=== PATIENT | female | born 1950 ===

== ENCOUNTER 2023-11-08 06:18 | Day surgery (SDC) | payer MEDICARE, OTHER, SELFPAY ==
[2023-11-08] VITALS (13 sets, daily range): BP systolic 142–193; BP diastolic 69–139; BMI 26.0
[2023-11-08 08:21] LABS: Glucose - Point of Care 161 mg/dl (70-99)
[2023-11-08 10:03] LABS: Glucose - Point of Care 145 mg/dl (70-99)
[2023-11-08] MEDS: DILAUDID 0.5 MG IV (10:28)
[2023-11-08] MEDS: DEMEROL 12.5 MG IV (10:40)
[2023-11-08] MEDS: TORADOL 15 MG IV (11:07)
== END 2023-11-08 12:06 | disposition home or self-care (01) ==
LOC: SDS 06:18
PROVIDERS: ATTENDING PHYSICIAN Specialist
DX: N20.0 Calculus of kidney (principal)
CPT/HCPCS: 52356; 74018; 76000; 82365; 82962; C1894; C2617

== ENCOUNTER 2023-11-19 09:56 | Inpatient (IN) | payer MEDICARE, OTHER, SELFPAY ==
[2023-11-17 12:56] VITALS: BP 140/91
[2023-11-17 13:14] VITALS: BMI 28.0
[2023-11-17] MEDS: NSS 2000 ML IV (13:28)
[2023-11-17] MEDS: TYLENOL 1000 MG PO (13:37)
[2023-11-17] MEDS: TORADOL 15 MG IV ×2 (13:37→21:46)
[2023-11-17 13:43] LABS: % Basophils 0.5 % (0-2); % Eosinophils 0.6 % (0-6); % Immature Granulocytes 0.6 % (0-0.5); % Lymphocytes 9.5 % (20.5-51.1); % Monocytes 4.5 % (1.7-9.3); % Neutrophils 84.3 % (42.2-75.2); Absolute Basophils 0.1 10^3/uL (0-0.2); Absolute Eosinophils 0.1 10^3/uL (0-0.7); Absolute Immature Granulocytes 0.1 10^3/uL (0-0.05); Absolute Monocytes 0.5 10^3/uL (0.1-0.6); Absolute Neutrophils 9.1 10^3/uL (1.4-6.5); Hematocrit 38.1 % (37.0-47.0); Hemoglobin 13.8 g/dL (12.0-16.0); Mean Corp Hgb Conc. 36.2 g/dL (33.0-37.0); Mean Corpuscular Hgb 30.4 pg (27.0-31.0); Mean Corpuscular Volume 83.9 fL (81.0-99.0); Mean Platelet Volume 9.5 fL (7.4-10.4); Nucleated Red Blood Cells % 0 %; Platelet Count 257 10^3/uL (130-400); Red Blood Cell Count 4.54 10^6/uL (4.20-5.40); White Blood Cell Count 10.8 10^3/uL (4.8-10.8)
[2023-11-17 13:44] LABS: Urine Albumin Negative (Neg - Trace); Urine Bilirubin Negative (Negative); Urine Character Clear (Clear); Urine Color Yellow; Urine Glucose Negative (Negative); Urine Ketone Negative (Negative); Urine Leukocyte 2+ (Negative); Urine Nitrite Positive (Negative); Urine Occult Blood Negative (Negative); Urine Urobilinogen Negative (Neg - 1+)
[2023-11-17 13:55] LABS: Lactic Acid 2.1 mmol/L (0.7-2.0)
[2023-11-17 13:56] LABS: ALT (SGPT) 16 U/L (0-35); AST (SGOT) 23 U/L (14-36); Albumin 4.6 g/dl (3.5-5.0); Alkaline Phosphatase 71 U/L (38-126); Blood Urea Nitrogen 15 mg/dl (7-17); Calcium 9.7 mg/dl (8.4-10.2); Carbon Dioxide 27 mmol/L (22-30); Chloride 99 mmol/L (98-107); Estimated Creatinine Clearance 68 ml/min; Glucose 129 mg/dl (70-99); Potassium 3.4 mmol/L (3.5-5.1); Sodium 138 mmol/L (135-145); Total Bilirubin 0.7 mg/dl (0.2-1.3); Total Protein 7.3 g/dl (6.3-8.2); eGFR > 60.00
--- NOTE | 2023-11-17 13:59 | ED.GENMED ---
History of Present Illness
General
Chief Complaint: Flank Pain
Source: patient
Time Seen by Provider: 11/17/23 13:12
History of Present Illness
History of Present Illness:
73 year old female with past medical history of hypertension, hyperlipidemia, diabetes, status post left ureteral stent placement/lithotripsy/stone extraction on 11/08/2023 on the right presenting to the ER due to increasing pain over the last few
days accompanied with fevers, chills, and rigors that started today. Patient did not take anything for symptoms prior to arrival. She states that 1 to 2 days following the procedure she did have some urinary frequency and dysuria but was told that
this was normal. She still notes the continued frequency/urgency but dysuria has completely abated. She denies any nausea or vomiting. No other concerns at this time.
Past History
Past History
ED Past Medical History: Cancer (Breast), HTN, Hypercholesterolemia, NIDDM and Other (Kidney stones)
ED Past Surgical History: Orthopedic and Other
Social History
Tobacco: Non-smoker
Alcohol: Occasional
Drug: None
Personal:
Living: with family
Review of Systems
Review of Systems
All Other Systems: ROS reviewed and negative except as documented in HPI and ROS
Phy Exam
Physical Exam
Physical Exam:
GENERAL: Alert , in no apparent distress
EYE: conjunctiva clear
NECK: Supple, no significant adenopathy.
ENT: o/p clr, mmm.
CARDIAC: Regular rate and rhythm
LUNGS: Clear breath sounds bilaterally, no acute respiratory distress, no wheezes/rales/rhonchi
Abdomen: Soft, mild right CVA tenderness, nondistended
NEUROLOGICAL: Alert and oriented
SKIN: Warm and dry, skin intact.
MUSCULOSKELETAL: well perfused.
PSYCH: Normal and appropriate interaction.
Scores
Heart Failure Risk
Heart Failure Risk Score: Not Applicable
Heart Score for Chest Pain Patients
STEMI patient?: Not applicable
Withdrawal Assessment of Alcohol
Withdrawal Assessment Completed?: Not applicable
Course
Orders/Labs/Results
Orders:
Orders
11/17/23 13:13
Acetaminophen [Tylenol] 1,000 mg PO NOW STA
11/17/23 13:15
0.9% Sodium Chloride 1000 ml [Nss] 2,000 ml IV NOW STA
11/17/23 13:25
Complete Blood Count/With Diff Urgent
Comprehensive Metabolic Panel Urgent
Lactic Acid Q4H
Comment: CANCEL 2nd LACTIC ACID IF 1st LACTIC ACID IS LESS THAN 2
Urinalysis Reflex To Culture Urgent
Date Specimen was Collected: 11/17/23
Time Specimen was Collected: 13:15
Urine Microscopic Reflex Cult Urgent
Blood Culture Q30M
HAMIDA Source: Blood/Venous
Specimen Description:
Blood Culture Q30M
HAMIDA Source: Blood/Venous
Specimen Description:
Urine Culture Urgent
HAMIDA Source: U
Specimen Description:
Date Specimen was Collected: 11/17/23
Time Specimen was Collected: 13:15
11/17/23 13:30
Ketorolac [Toradol] 15 mg IV NOW STA
11/17/23 13:56
CefTRIAXone [Rocephin] 1,000 mg IV NOW STA
11/17/23 14:41
Admit/Transfer Patient As Directed
Co-Sign Provider:
Level of Care: Observation services
Assign to:: Medical/Surgical
Physician / Group: Jelly
Diagnosis: UTI
11/17/23 14:42
Code Status As Directed
Resuscitation Status: Full Code
11/17/23 14:45
Chest X-ray Portable [CR Chest Portable - 1 View] Routine
Comment:
Reason For Exam: fever
Reason Study Needs to be Portable: Other
11/17/23 17:15
Lactic Acid Q4H
Comment: CANCEL 2nd LACTIC ACID IF 1st LACTIC ACID IS LESS THAN 2
Abnormal Lab Results
11/17/23
13:25
Abs Immat Gran (auto) 0.1 H 10^3/uL
(0-0.05)
Absolute Neuts (auto) 9.1 H 10^3/uL
(1.4-6.5)
Absolute Lymphs (auto) 1.0 L 10^3/uL
(1.2-3.4)
Immature Gran % 0.6 H %
(0-0.5)
Neutrophils % 84.3 H %
(42.2-75.2)
Lymphocytes % 9.5 L %
(20.5-51.1)
Potassium 3.4 L mmol/L
(3.5-5.1)
Glucose 129 H mg/dl
(70-99)
Lactic Acid 2.1 H mmol/L
(0.7-2.0)
Urine Nitrite (Reflex) Positive A
(Negative)
Leukocyte Esterase Rfl 2+ A
(Negative)
Urine Bacteria (Reflex) Moderate A
(Negative)
11/17/23 13:25
11/17/23 13:25
Vital Signs
Initial and Last Documented VS:
Initial Vital Signs
Temp Pulse Resp BP Pulse Ox
101.2 F H 112 18 140/91 97
11/17/23 12:56 11/17/23 12:56 11/17/23 12:56 11/17/23 12:56 11/17/23 12:56
Last Documented Vital Signs
Temp Pulse Resp BP Pulse Ox
99.1 F 98 16 142/70 96
11/17/23 15:04 11/17/23 14:17 11/17/23 14:17 11/17/23 14:17 11/17/23 14:17
MDM/Problems Addressed
Differential Diagnosis Includes:
Pyelonephritis, cystitis, urosepsis, bacteremia
MDM/Problems Addressed:
73-year-old female presenting emergency department for evaluation of right-sided flank pain with new fever, chills in the setting of recent right ureteral stent placement and stone extraction on November 07. She was found to have a 101.2 fever here.
Tylenol was ordered for her pyrexia. Labs including blood cultures and lactic acid ordered as I do have concern for urosepsis. Will order fluids. Awaiting antibiotics until patient's urine resulted.
*Pulse Oximetry
Patient hypoxic: no
*Critical Care Note
Total Time (30-74mins, 75-104mins- exclusive of procedures): Not Applicable
Data Reviewed
Review of Other/Old Records Reveals: Records
Patient Management
Discussion with other providers: Hospitalist and [employer] Machine Operator
Escalation/DeEscalation of care consider admission/obs:
Patient has no elevated white blood cell count however does have a lactic acid of 2.1. Renal function is normal. Urine does show nitrate positive urine as well as 2+ leukocyte esterase. 1 g of Rocephin IV ordered. Both the hospitalist team and
urology were notified. Hospitalist team accepts for continued evaluation and treatment with urology in consultation.
ED Attending Note
-
Portions of this chart may have been created with voice recognition software.� Occasional wrong word or��sound alike� substitutions may have occurred due to the inherent limitations of voice recognition software.
Discharge Plan
Departure
Patient Disposition: Admit
Date of Disposition: 11/17/23
Time of Disposition: 13:59
Presentation/result/management discussed w/ accepting MD/DO: Hospitalist
Discharge Problem:
Acute pyelonephritis
Interventions
Interventions:
*Risk Screen - Suicide Last Done: 11/17/23 12:57
*General Assessment Last Done: 11/17/23 12:57
*Neglect/Abuse Screening Last Done: 11/17/23 12:57
*ED COVID-19 Vaccine History Last Done: 11/17/23 13:14
SR-Kynejl-Bjcnhrjiqz Assessment Last Done: 11/17/23 13:14
ED-Female Genitourinary Assessment Last Done: 11/17/23 13:14
[2023-11-17] MEDS: ROCEPHIN 1000 MG IV (14:12)
[2023-11-17 14:17] VITALS: BP 142/70
[2023-11-17 14:44] LABS: Urine Bacteria Moderate (Negative); Urine Red Blood Cell None Seen /HPF (0-2)
--- NOTE | 2023-11-17 15:11 | HPS.HSE ---
Family Physician
-
Family Physician: El Garcia MD
Chief Complaint
-
Fever and chills
History of Present Illness
Pleasant 73-year-old female who had a lithotripsy and stent placed in the left ureter on November 07 of this hospital, just over 2 she was doing well except the last couple of days she was feeling tired and lousy and lethargic specially this morning she
felt cold and chilly and having back pain mostly left flank, denies any chest pain or nausea or vomiting, denies dysuria or hematuria no abdominal pain, no cough or congestion, no sick contacts or recent travel.
This morning she felt very cold and chilly when she checked her temperature was 101 at home in the ER was 102.
Is little better with some fluid and Toradol in the ER also got a dose of Rocephin where the workup showed UTI.
Medical History
Past Medical History
Past Medical History: Reports Other
Additional Past Medical History:
Past medical history reviewed:
Diabetes mellitus
Hypertension
Dyslipidemia
Left breast cancer
History of C. difficile
Kidney stone
Chronic back pain
Surgical history:
Left breast surgery for cancer
Back surgery
Cystoscopy and lithotripsy and stent placement
Social history: Lives at home with her , denies smoking alcohol use. She is independent.
Family history: Reviewed and noncontributory
Past Surgical History: Reports Other
Social History
Alcohol: Other
Family History
Family History: Other
Allergies / Home Medications
Allergies reflects when Allergies were last updated in [facility].
Home Medications with original date entered in [facility]
Allergy/Medication List:
Allergies
Allergy/AdvReac Type Severity Reaction Status Date / Time
codeine Allergy Tongue Verified 11/08/23 07:49
Swelling
Home Medications
Lactobac no.2-Bifidobac no.1-S. thermo 112.5 billion cell capsule (Visbiome) 1 cap PO DAILY 04/10/23
amlodipine 10 mg tablet 10 mg PO HS 04/10/23
cholecalciferol (vitamin D3) 50 mcg (2,000 unit) tablet (Vitamin D3) 50 mcg PO DAILY 04/10/23
glimepiride 4 mg tablet 4 mg PO BID 04/10/23
losartan 100 mg tablet 100 mg PO DAILY 04/10/23
lovastatin 20 mg tablet 20 mg PO HS 04/10/23
metformin 500 mg tablet,extended release 24 hr 500 mg PO BID 04/10/23
chlorthalidone 25 mg tablet 12.5 mg PO DAILY 11/05/23
ascorbic acid (vitamin C) 500 mg tablet (Vitamin C) 500 mg PO DAILY 11/17/23
berberine chloride 500 mg capsule 500 mg PO DAILY 11/17/23
Review of Systems
-
A 12 point ROS was completed and negative except as noted: Yes
Physical Exam
Vital Signs
Vital Signs
Temp Pulse Resp BP Pulse Ox
99.1 F 98 16 142/70 96
11/17/23 15:04 11/17/23 14:17 11/17/23 14:17 11/17/23 14:17 11/17/23 14:17
Physical exam:
General: Awake, alert and oriented x3, not in distress and holds appropriate conversation.
HEENT: No active discharge, ecchymosis or bruising, moist lips, tongue and mucous membrane.
Eyes: No discharge or red conjunctiva, no nystagmus, pupils are reactive and equal
Neck:Supple, no JVD no bruit no goiter.
Respiratory: Normal AP contour and diameter, normal chest wall movement, normal respiratory effort, no respiratory distress,
Lungs: Good air entry bilaterally, no wheezing or rhonchi, no rales or crackles
Heart: S1, S2 regular, normal rate, no added sound.
Gastrointestinal: Positive bowel sounds, soft, nontender, no guarding or rigidity or organomegaly
Musculoskeletal: , no chest wall abnormality or tenderness. All joints and extremities have good range of motion, no muscle tenderness or any joint swelling or tenderness.
Extremities: No pitting edema, good peripheral pulses, good range of motion
Skin: Warm and dry, no ulceration, normal color.
Neurological: Awake, alert and oriented x3,,speech clear and comprehensive, good muscle tone, normal sensory and motor function
Psychiatric: Normal mood, normal thought and judgment, normal affect,
Physical Exam
Hematologic/Lymphatic: Other
Laboratory Results
-
11/17/23 13:25
11/17/23 13:25
Laboratory Results
Lactic Acid 2.1 mmol/L (0.7-2.0) H 11/17/23 13:25
Total Bilirubin 0.7 mg/dl (0.2-1.3) 11/17/23 13:25
AST 23 U/L (14-36) 11/17/23 13:25
ALT 16 U/L (0-35) 11/17/23 13:25
Alkaline Phosphatase 71 U/L (38-126) 11/17/23 13:25
Data Reviewed
-
Lab Data: Labs Reviewed by me and Discussed with Patient
Old Records: Reviewed
Impression/Plan
-
IMPRESSION:
73-year-old female presented to the hospital for fever and left flank pain recently lithotripsy and stent placement, workup chronic concerning for UTI.
Urine tract infection likely triggered by-left ureteral stent and recent cystoscopy
Fever
Left flank pain
Diabetes mellitus
Hypertension
Dyslipidemia.
PLAN:
IV fluid
Tylenol and Toradol as needed
IV Rocephin could be de-escalated pending urine culture and sensitivity
Get a blood culture if not collected
Get a chest x-ray
Hold metformin continue glimepiride
Monitor vital sign blood sugar
If not improved then will consider getting urology consult
All discussed with the patient in detail expressed understanding
CODE STATUS full code
DVT prophylaxis Lovenox
[2023-11-17 17:04] VITALS: BP 156/75; BMI 26.5
[2023-11-17 17:05] LABS: Glucose - Point of Care 145 mg/dl (70-99)
[2023-11-17] MEDS: NOVOLOG FLEXPEN-MODERATE RESISTANCE SC (17:11)
[2023-11-17] MEDS: NSS 1000 IV (17:16)
[2023-11-17] MEDS: LOVENOX 40 MG SC (17:20)
[2023-11-17 17:45] LABS: Lactic Acid 1.4 mmol/L (0.7-2.0)
[2023-11-17 21:32] LABS: Glucose - Point of Care 192 mg/dl (70-99)
[2023-11-17] MEDS: NORVASC 10 MG PO (21:35)
[2023-11-17] MEDS: LIPITOR 10 MG PO (21:35)
[2023-11-17] MEDS: AMARYL 4 MG PO (21:35)
[2023-11-17] MEDS: TYLENOL 650 MG PO (21:45)
[2023-11-17] MEDS: SENOKOT-S 1 TABLET PO (21:54)
[2023-11-17 23:58] VITALS: BP 134/78
[2023-11-18] MEDS: TORADOL 15 MG IV (03:34)
[2023-11-18] MEDS: TYLENOL 650 MG PO (06:09)
[2023-11-18 07:24] LABS: Glucose - Point of Care 198 mg/dl (70-99)
[2023-11-18 07:33] LABS: % Basophils 0.4 % (0-2); % Eosinophils 0.9 % (0-6); % Immature Granulocytes 0.4 % (0-0.5); % Lymphocytes 18.7 % (20.5-51.1); % Neutrophils 73.6 % (42.2-75.2); Absolute Eosinophils 0.1 10^3/uL (0-0.7); Absolute Lymphocytes 1.3 10^3/uL (1.2-3.4); Absolute Monocytes 0.4 10^3/uL (0.1-0.6); Hematocrit 32.5 % (37.0-47.0); Hemoglobin 11.8 g/dL (12.0-16.0); Mean Corp Hgb Conc. 36.3 g/dL (33.0-37.0); Mean Corpuscular Hgb 30.1 pg (27.0-31.0); Mean Corpuscular Volume 82.9 fL (81.0-99.0); Mean Platelet Volume 9.7 fL (7.4-10.4); Nucleated Red Blood Cells % 0 %; Platelet Count 224 10^3/uL (130-400); Red Blood Cell Count 3.92 10^6/uL (4.20-5.40); Red Cell Dist. Width 11.9 % (11.5-14.5); White Blood Cell Count 6.8 10^3/uL (4.8-10.8)
[2023-11-18] MEDS: NSS 1000 IV (07:44)
[2023-11-18] MEDS: AMARYL 4 MG PO ×2 (07:44→21:07)
[2023-11-18] MEDS: COZAAR 100 MG PO (07:45)
[2023-11-18] MEDS: VISBIOME 1 CAP PO (07:45)
[2023-11-18] MEDS: NOVOLOG FLEXPEN-MODERATE RESISTANCE 1 UNITS SC ×2 (07:47→17:45)
--- NOTE | 2023-11-18 07:51 | W.PN.HOSP.TC ---
Today's Communication/Plan
-
IV antibiotics. Urology eval.
Assessment / Plan
Assessment / Plan
Physical exam:
General: Acutely ill
HEENT: Normocephalic, Atraumatic and Moist Mucous Membranes
Respiratory: Clear to Auscultation; Negative Wheezes, Rales or Rhonchi
Cardiac: Regular Rhythm and S1/S2
GI: Soft, Nontender and Nondistended
Musculoskeletal: No Clubbing, No Cyanosis and No Edema
Neuro: Awake, Alert and Oriented
Psych: Calm
A/P:
UTI/pyelonephritis:
Continue IV antibiotics
Blood cultures no growth so far but continue to monitor
Urine culture, E. coli pending sensitivities
Status post left ureteroscopy, laser lithotripsy, and stent insertion on 11/07 by urology.
Urology consult-discussed with urology today (plan to remove ureteral stent either inpatient or outpatient)
Stop IV fluids
Hypertension:
On amlodipine 10 mg daily
On losartan 100 mg p.o. daily
Holding chlorthalidone 12.5 mg
Hyperlipidemia:
On atorvastatin 10 mg p.o. nightly
Diabetes mellitus type 2:
Insulin sliding scale
On Amaryl 4 mg twice a day
Holding metformin
DVT prophylaxis:
SCDs
CODE STATUS:
Full code
Anticipated Discharge: 24 - 48 hours
Subjective/Interval History
-
Date of Service: November 18, 2023
Patient feels better today. No nausea or vomiting. Afebrile
Objective Data
-
Labs:
Laboratory Results
11/18/23
06:46
WBC Pending
Hgb Pending
Hct Pending
Plt Count Pending
Sodium Pending
Potassium Pending
Chloride Pending
Carbon Dioxide Pending
BUN Pending
Creatinine Pending
Glucose Pending
Calcium Pending
Vital Signs:
Vital Signs
Temp Pulse Resp BP Pulse Ox
98.1 F 89 16 144/70 97
11/17/23 23:58 11/17/23 23:58 11/17/23 23:58 11/18/23 07:45 11/17/23 23:58
I&O
11/17/23 11/18/23 11/19/23
06:59 06:59 06:59
Intake Total 480 / 480
Balance 480 / 480
[2023-11-18 08:11] VITALS: BP 144/70
[2023-11-18 08:19] LABS: Glycohemoglobin (HgbA1c) 6.5 % (4.0-5.6)
[2023-11-18 08:32] LABS: Blood Urea Nitrogen 10 mg/dl (7-17); Calcium 8.9 mg/dl (8.4-10.2); Carbon Dioxide 23 mmol/L (22-30); Chloride 106 mmol/L (98-107); Estimated Creatinine Clearance 71 ml/min; Glucose 159 mg/dl (70-99); Magnesium 1.5 mg/dl (1.6-2.3); Potassium 3.8 mmol/L (3.5-5.1); Sodium 137 mmol/L (135-145); eGFR > 60.00
[2023-11-18] MEDS: SENOKOT-S 1 TABLET PO (10:18)
--- NOTE | 2023-11-18 10:46 | CM ---
Patient seen bedside with spouse, initial assessment completed. Patient resides with spouse in a two story home, one step to enter. Patients reports she has grown children and grandchildren who live out of state. Patient denies DME, VN, or SNF,
reports she is still working. Patient confirms PCP El Garcia, pharmacy [facility] in [place], confirms prescription coverage. Patient denies food insecurities, housing/utility insecurities, transportation insecurities. [employer] form reviewed,
refused to sign, provided patient with copy. Documented and placed in chart. Patient denies any needs from CM upon discharge. CM will continue to follow for all discharge planning needs.
Plan; home no needs likely.
[2023-11-18 11:44] LABS: Glucose - Point of Care 154 mg/dl (70-99)
[2023-11-18] MEDS: NOVOLOG FLEXPEN-MODERATE RESISTANCE SC (12:11)
--- NOTE | 2023-11-18 12:44 | W.PN.URO.CBU ---
Today's Communication / Plan
-
HOME WITH STENTS ONCE ORGANISM IODENTIFIED AND PT STABLE
Assessment / Plan
-
COMPLEX UTI WILL LEAVE STENTS AND DISCHARGE ONCE TARGETED PO ABS ESTABLIHED
Diagnosis
-
Date of Service: November 18, 2023
-
Patient Diagnosis:COMPLEX YTI IN PT WITH JJ STENT S/P LG URIC ACID STONEN LASER
Post Op Day:
Subjective
-
FEELING BETTER
Objective
-
Vital Signs
Temp Pulse Resp BP Pulse Ox
98 F 75 16 144/70 95
11/18/23 08:11 11/18/23 08:11 11/18/23 08:11 11/18/23 08:11 11/18/23 08:11
Intake and Output
11/17/23 11/18/23 11/19/23
06:59 06:59 06:59
Intake Total 480 / 480
Balance 480 / 480
Intake:
Oral fluids 480 / 480
Other:
Number of approximated MODERATE 3
amounts of urine
Laboratory Results
11/18/23 06:46
11/18/23 06:46
Review of Systems
-
Constitutional: Fever and Fatigue
Physical Exam
-
General - well developed, well nourished, no acute distress
Chest - clear bilaterally
Abdomen - soft, non-tender, positive bowel sounds, no CVAT, no incisional pain or distention
Genitalia - normal
Rectal - normal
Skin - warm & dry with no rash
Neuro - AOx3, no motor deficits
Extremities - no clubbing, no cyanosis, no edema
Incision - clean, dry
Dressing - clean, dry, intact
Care Review
Data Reviewed
Discussed with: Hospitalist and Nursing
CT Scan: Image Pers Reviewed
[2023-11-18] MEDS: STERILE WATER FOR INJECTION 10 ML IV (13:34)
[2023-11-18] MEDS: ROCEPHIN 1000 MG IV (13:34)
[2023-11-18] MEDS: MIRALAX 17 GRAMS PO (13:40)
[2023-11-18 15:58] VITALS: BP 138/75
[2023-11-18 16:32] LABS: Glucose - Point of Care 165 mg/dl (70-99)
[2023-11-18] MEDS: LOVENOX 40 MG SC (17:45)
[2023-11-18] MEDS: NORVASC 10 MG PO (21:07)
[2023-11-18] MEDS: LIPITOR 10 MG PO (21:07)
[2023-11-18 21:36] LABS: Glucose - Point of Care 224 mg/dl (70-99)
[2023-11-18 23:47] VITALS: BP 156/84
[2023-11-19 07:00] VITALS: BP 146/72
[2023-11-19 07:11] LABS: % Basophils 0.3 % (0-2); % Eosinophils 1.1 % (0-6); % Immature Granulocytes 0.4 % (0-0.5); % Lymphocytes 22.5 % (20.5-51.1); % Monocytes 6.5 % (1.7-9.3); % Neutrophils 69.2 % (42.2-75.2); Absolute Eosinophils 0.1 10^3/uL (0-0.7); Absolute Lymphocytes 1.6 10^3/uL (1.2-3.4); Absolute Monocytes 0.5 10^3/uL (0.1-0.6); Hematocrit 36.4 % (37.0-47.0); Hemoglobin 12.5 g/dL (12.0-16.0); Mean Corp Hgb Conc. 34.3 g/dL (33.0-37.0); Mean Corpuscular Hgb 29.8 pg (27.0-31.0); Mean Corpuscular Volume 86.7 fL (81.0-99.0); Mean Platelet Volume 9.3 fL (7.4-10.4); Nucleated Red Blood Cells % 0 %; Platelet Count 229 10^3/uL (130-400); Red Cell Dist. Width 11.9 % (11.5-14.5); White Blood Cell Count 7.2 10^3/uL (4.8-10.8)
[2023-11-19 07:18] LABS: Glucose - Point of Care 175 mg/dl (70-99)
[2023-11-19] MEDS: GLUCOPHAGE XR EXTENDED RELEASE 500 MG PO (08:40)
[2023-11-19] MEDS: VITAMIN D3 (cholecalciferol) 50 MCG PO (08:40)
[2023-11-19] MEDS: COZAAR 100 MG PO (08:40)
[2023-11-19] MEDS: Hygroton 12.5 MG PO (08:40)
[2023-11-19] MEDS: VISBIOME 1 CAP PO (08:40)
[2023-11-19] MEDS: AMARYL 4 MG PO (08:40)
[2023-11-19] MEDS: NOVOLOG FLEXPEN-MODERATE RESISTANCE 1 UNITS SC (08:42)
[2023-11-19] MEDS: SENOKOT-S 1 TABLET PO (08:50)
[2023-11-19 08:52] LABS: Blood Urea Nitrogen 13 mg/dl (7-17); Calcium 9.7 mg/dl (8.4-10.2); Carbon Dioxide 25 mmol/L (22-30); Chloride 103 mmol/L (98-107); Estimated Creatinine Clearance 71 ml/min; Glucose 177 mg/dl (70-99); Potassium 3.9 mmol/L (3.5-5.1); Sodium 138 mmol/L (135-145); eGFR > 60.00
--- NOTE | 2023-11-19 09:08 | W.PN.HOSP.TC ---
Addendum entered and electronically signed by Leroy Tan MD 11/22/23 12:26:
Yes, UTI is related to/ associated with/due to ureteral stent
Original Note:
Today's Communication/Plan
-
Oral antibiotics. Discharge planning today.
Assessment / Plan
Assessment / Plan
Physical exam:
General: No acute distress
HEENT: Normocephalic, Atraumatic and Moist Mucous Membranes
Respiratory: Clear to Auscultation; Negative Wheezes, Rales or Rhonchi
Cardiac: Regular Rhythm and S1/S2
GI: Soft, Nontender and Nondistended
Musculoskeletal: No Clubbing, No Cyanosis and No Edema
Neuro: Awake, Alert and Oriented
Psych: Calm
A/P:
UTI/pyelonephritis:
Change IV antibiotics to oral today.
Blood cultures no growth so far but continue to monitor
Urine culture, E. coli and reviewed sensitivities
Status post left ureteroscopy, laser lithotripsy, and stent insertion on 11/07 by urology.
Urology consult-discussed with urology yesterday (plan to remove ureteral stent outpatient)
Off IV fluids
Discharge planning today
Hypertension:
On amlodipine 10 mg daily
On losartan 100 mg p.o. daily
Holding chlorthalidone 12.5 mg
Hyperlipidemia:
On atorvastatin 10 mg p.o. nightly
Diabetes mellitus type 2:
Insulin sliding scale
On Amaryl 4 mg twice a day
Holding metformin
DVT prophylaxis:
SCDs
CODE STATUS:
Full code
Anticipated Discharge: Today
Subjective/Interval History
-
Date of Service: November 19, 2023
Patient doing well. Afebrile
Objective Data
-
Labs:
Laboratory Results
11/19/23
06:47
WBC 7.2
Hgb 12.5
Hct 36.4 L
Plt Count 229
Sodium 138
Potassium 3.9
Chloride 103
Carbon Dioxide 25
BUN 13
Creatinine 0.5 L
Glucose 177 H
Calcium 9.7
Vital Signs:
Vital Signs
Temp Pulse Resp BP Pulse Ox
98.1 F 85 16 146/72 95
11/19/23 07:00 11/19/23 07:00 11/19/23 07:00 11/19/23 07:00 11/19/23 07:00
I&O
11/18/23 11/19/23 11/20/23
06:59 06:59 06:59
Intake Total 480 / 480 960 / 960
Balance 480 / 480 960 / 960
--- NOTE | 2023-11-19 09:57 | W.PN.URO.CBU ---
Today's Communication / Plan
-
home when opk by hospitalist
Assessment / Plan
-
COMPLEX UTI WILL LEAVE STENTS AND DISCHARGE ONCE TARGETED PO ABS ESTABLIHED e coli in urine afebrile andwbc npormalized stent to be removed as outpatient to allow more time to have uric acid stomes migrate or dissolve
Diagnosis
-
Date of Service: November 19, 2023
-
Patient Diagnosis:
Post Op Day:
Patient Diagnosis:COMPLEX YTI IN PT WITH JJ STENT S/P LG URIC ACID STONEN LASER
Post Op Day:
Subjective
-
much better
Objective
-
Vital Signs
Temp Pulse Resp BP Pulse Ox
98.1 F 85 16 146/72 95
11/19/23 07:00 11/19/23 07:00 11/19/23 07:00 11/19/23 07:00 11/19/23 07:00
Intake and Output
11/18/23 11/19/23 11/20/23
06:59 06:59 06:59
Intake Total 480 / 480 960 / 960
Balance 480 / 480 960 / 960
Intake:
Oral fluids 480 / 480 960 / 960
Other:
Number of approximated MODERATE 3 2
amounts of urine
Laboratory Results
11/19/23 06:47
11/19/23 06:47
Review of Systems
-
: No Symptoms
Physical Exam
-
General - well developed, well nourished, no acute distress
Chest - clear bilaterally
Abdomen - soft, non-tender, positive bowel sounds, no CVAT, no incisional pain or distention
Genitalia - normal
Rectal - normal
Skin - warm & dry with no rash
Neuro - AOx3, no motor deficits
Extremities - no clubbing, no cyanosis, no edema
Incision - clean, dry
Dressing - clean, dry, intact
Care Review
Data Reviewed
Discussed with: Hospitalist, Internal Medicine and Family ()
CT Scan: Image Pers Reviewed
--- NOTE | 2023-11-19 11:16 | CM ---
Patient seen bedside.
IMM reviewed with patient.
Patient denies home care needs.
Plan: home no needs.
[2023-11-19 11:48] LABS: Glucose - Point of Care 144 mg/dl (70-99)
--- NOTE | 2023-11-19 12:02 | W.DCSUMMARY ---
Addendum entered and electronically signed by Leroy Tan MD 11/20/23 08:49:
Correction--> discharged date is 11/19/2023.
Original Note:
Discharge Summary
Discharge Data
Date of Admission: 11/19/23
Date of Discharge: 11/20/23
-
Pending Results: No
Hospital Course
Patient 73 years old female with history of recent left ureteral stent came into the hospital with fevers and chills. Patient was found to have UTI/pyelonephritis. Urology consulted. She was given IV fluids and IV antibiotics. Urine culture grew
E. coli pansensitive. Antibiotics were tailored to sensitivity. IV fluids were stopped. She remained hemodynamically stable and afebrile and no leukocytosis. Urology is planning to remove stent as outpatient. Urology cleared her for discharge.
Blood cultures remain no growth. Patient is asymptomatic and no other events were noticed. Patient is going to be discharged in stable condition today.
Discharge duration: 35 minutes
Discharge Plan
-
Patient Disposition: Home (Routine Discharge)
Discharge Diagnosis/Procedures: Urinary tract infection in the setting of recent left ureteral stent.
Diet: Low Cholesterol
Activity: As tolerated
Blood Work: Please PCP to order CBC, BMP within 1 week
Referrals:
Mark Eid MD [Active] - (call dr Valentin to arrange stent removal if not already scheduled )
El Garcia MD [Family Provider] - in less than 1 week
Prescriptions:
New
potassium citrate 15 mEq tablet extended release
15 meq PO BID Qty: 60 0RF
cephalexin 500 mg Capsule
500 mg PO BID 7 Days Qty: 14 0RF
Continued
amlodipine 10 mg Tablet
10 mg PO HS
glimepiride 4 mg Tablet
4 mg PO BID
lovastatin 20 mg Tablet
20 mg PO HS
losartan 100 mg Tablet
100 mg PO DAILY
metformin 500 mg Tablet Extended Release 24 Hr
500 mg PO BID
Visbiome 112.5 billion cell Capsule
1 cap PO DAILY
cholecalciferol (vitamin D3) [Vitamin D3] 50 mcg (2,000 unit) Tablet
50 mcg PO DAILY
chlorthalidone 25 mg Tablet
12.5 mg PO DAILY
ascorbic acid (vitamin C) [Vitamin C] 500 mg Tablet
500 mg PO DAILY
berberine chloride 500 mg Capsule
500 mg PO DAILY
Discharge Orders:
Discharge Patient (As Directed); Ordered 11/19/23
Ordered By: Leroy Tan
Discharge Date and Time
Discharge Date/Time: 11/19/23 13:16
Print Language: [place]
[2023-11-19] MEDS: UROCIT-K 10 MEQ PO (12:15)
[2023-11-19] MEDS: KEFLEX 500 MG PO (12:15)
[2023-11-19] MEDS: NOVOLOG FLEXPEN-MODERATE RESISTANCE SC (12:16)
[2023-11-19 12:30] VITALS: BP 140/70
--- NOTE | 2023-11-20 16:13 | PN.CDI ---
CDI
- -
CDI:
Physician Documentation Request
Admit Date: [f_Reg Admit Date Time]
Dear Doctor Dominick,
Please review the following and provide your response in the progress notes.
Clinical Indicators:
The patient had a recent ureteral stent placement/lithotripsy/stone extraction on 11/08/23, now presenting with acute pyelonephritis.
Additional clinical indicators in the chart include:
H&P: urinary tract infection likely'triggered 'by left ureteral stent and recent cystoscopy
Urology PN 11/18 : complex UTI and stent will be removed as outpatient
DS: Urinary tract infection 'in the setting of' recent left ureteral stent
Please clarify if a relationship exist between this conditions:
____ Yes, UTI is related to/ associated with/due to ureteral stent
____ No, UTI is not related to/ associated with/due to ureteral stent
____ - Unable to determine
Use of terms such as suspected, likely, concern for, or probable are acceptable for a diagnosis that is being evaluated, monitored or treated as if it exists and can be coded in the inpatient setting, when documented at the time of discharge.
Thank you,
Salima Muhammad
[facility]
Please use your independent medical judgment in providing your response.
== END 2023-11-19 13:16 | disposition home or self-care (01) | DRG 699 ==
LOC: 4 WEST ACU 09:56
PROVIDERS: Physician Assistant Medical; ADMITTING PHYSICIAN Internal Medicine; ATTENDING PHYSICIAN Hospitalist; CONSULT PHYSICIAN Specialist; EMERGENCY PHYSICIAN Emergency Medicine; FAMILY PHYSICIAN Family Medicine
DX: T83.592A Infection and inflammatory reaction due to indwelling ureteral stent, initial encounter (principal); N10 Acute pyelonephritis; I10 Essential (primary) hypertension; E11.9 Type 2 diabetes mellitus without complications; N20.0 Calculus of kidney; B96.20 Unspecified Escherichia coli [E. coli] as the cause of diseases classified elsewhere; E78.00 Pure hypercholesterolemia, unspecified; Z85.3 Personal history of malignant neoplasm of breast; Z88.5 Allergy status to narcotic agent; Z79.84 Long term (current) use of oral hypoglycemic drugs; Z79.899 Other long term (current) drug therapy; Z96.0 Presence of urogenital implants; Y73.2 Prosthetic and other implants, materials and accessory gastroenterology and urology devices associated with adverse incidents
CPT/HCPCS: 71045; 80048; 80053; 81003; 81015; 82962; 83036; 83605; 83735; 85025; 87040; 87077; 87086; 87186; 96374; 99285